=== PATIENT | male | born 1960 | race African-American/Black ===

== ENCOUNTER 2018-09-10 23:44 | Inpatient (IN) | payer OTHER ==
[~2018-09-10] VITALS: Ht 180.3 cm; Wt 90.3 kg
[2018-09-11] MEDS ORDERED: IV NORMAL SALINE 1,000ML 1,000 ML IV ONE (00:30)
[2018-09-11] MEDS ORDERED: ASPIRIN 325 MG TABLET PO ONE (00:45)
--- NOTE | 2018-09-11 00:45 | RAD ---
PQRS Compliance Statement: One or more of the following individualized dose reduction techniques were utilized for this examination: 1. Automated exposure control 2. Adjustment of the mA and/or kV according to patient size 3. Use of iterative reconstruction technique CT HEAD WITHOUT CONTRAST History: Left-sided facial droop, weakness. Comparison: None. Procedure: Axial images are obtained of the head from the skull base through the vertex without IV contrast. Findings: The ventricles and sulci are normal for the patient's age. No mass-effect, midline shift, hemorrhage, extra-axial fluid collection, or obvious acute infarction is identified. Basilar cisterns are patent. Bone windows demonstrate no acute calvarial abnormality. Tiny malleable plate and screw fixation superior to left orbit. The visualized paranasal sinuses are clear. Mastoid air cells are well aerated. IMPRESSION: No acute intracranial abnormality. Electronically signed by: Vincenzo Goznalez MD (09/11/2018 12:42 AM) [facility]
--- NOTE | 2018-09-11 00:48 | PHYS DOC ---
Past History Past Medical History: High Cholesterol, Hypertension Additional Past Medical Histor: TBI with subdural hemorrhage Additional Past Surgical Histo: Facial reconstruction, Keven holes, hernia repair Smoking: Quit Less Than 1 Year Alcohol Use: None Drug Use: None Adult General Chief Complaint Chief Complaint: WEAKNESS/GENERALIZED HPI HPI 57-year-old male presents with report of sudden left-sided facial droop and left-sided weakness which started at around 2300. Family reports last approximate 10 minutes and self resolved. Patient also noted to have slurred speech at that time. Patient has a history of prior TBI with intercranial hemorrhage requiring surgical intervention in 2010. Denies use of blood thinners. Denies recent trauma. Denies fever or chills. Reports has some slight speech issues status post TBI. Review of Systems Review of Systems Constitutional: Denies fever or chills Eyes: Denies redness or eye pain HENT: Denies nasal congestion or sore throat Respiratory: Denies cough or shortness of breath Cardiovascular: Denies chest pain or palpitations GI: Denies abdominal pain, nausea, or vomiting : Denies dysuria or hematuria Musculoskeletal: Denies back pain or joint pain Integument: Denies rash or skin lesions Neurologic: Denies headache; reports left sided weakness and slurred speech Complete systems were reviewed and found to be within normal limits, except as documented in this note. Current Medications Current Medications Current Medications Medications (Trade) Dose Ordered Sig/Shelbi Start Time Stop Time Status Last Admin Dose Admin Aspirin (Ashley Aspirin) 325 mg 1X ONCE 09/11/18 00:45 09/11/18 00:46 UNV Sodium Chloride 1,000 ml @ 1,000 mls/hr 1X ONCE 09/11/18 00:00 09/11/18 00:59 UNV Physical Exam Physical Exam Constitutional: Well developed, well nourished, no acute distress, non-toxic appearance HENT: Normocephalic, atraumatic, oropharynx moist Eyes: PERRL, EOMI, conjunctiva normal, no discharge Neck: Normal range of motion, no tenderness, supple Cardiovascular: Heart rate normal, regular rhythm Lungs & Thorax: Bilateral breath sounds clear to auscultation, no wheezing Abdomen: Soft, no tenderness Skin: Warm, dry, no erythema, no rash Back: No tenderness, no CVA tenderness Extremities: No tenderness, ROM intact, no edema Neurologic: Alert and oriented X 3, normal motor function, normal sensory function, no focal deficits noted Psychologic: Affect normal, judgement normal, mood normal Current Patient Data Vital Signs Vital Signs Date Time Temp Pulse Resp B/P (MAP) Pulse Ox O2 Delivery O2 Flow Rate FiO2 09/10/18 23:50 60 16 98 Room Air EKG EKG @0036 Sinus bradycardia at 51 bpm, nonspecific t wave inversion III, baseline artifact V2 Radiology/Procedures Radiology/Procedures PROCEDURE: CT HEAD WO CONTRAST PQRS Compliance Statement: One or more of the following individualized dose reduction techniques were utilized for this examination: 1. Automated exposure control 2. Adjustment of the mA and/or kV according to patient size 3. Use of iterative reconstruction technique CT HEAD WITHOUT CONTRAST History: Left-sided facial droop, weakness. Comparison: None. Procedure: Axial images are obtained of the head from the skull base through the vertex without IV contrast. Findings: The ventricles and sulci are normal for the patient's age. No mass-effect, midline shift, hemorrhage, extra-axial fluid collection, or obvious acute infarction is identified. Basilar cisterns are patent. Bone windows demonstrate no acute calvarial abnormality. Tiny malleable plate and screw fixation superior to left orbit. The visualized paranasal sinuses are clear. Mastoid air cells are well aerated. IMPRESSION: No acute intracranial abnormality. Electronically signed by: Vincenzo Gonzalez MD (09/11/2018 12:42 AM) [facility] CXR AP (preliminary interpretation by ED physician): NO acute process Course & Med Decision Making Course & Med Decision Making Pertinent Labs and Imaging studies reviewed. (See chart for details) Patient presents with history of present illness and physical exam concerning for TIA. Patient does have history of prior traumatic brain injury with intracranial hemorrhaging requiring surgical intervention. Denies use of blood thinners. Denies recent trauma. NIHSS 0. CT head without acute process. Chest x- ray clear. EKG stable. Labs obtained and posted to chart. Patient not candidate for TPA given history of intracranial hemorrhage and resolution of symptoms. ASA given, Patient requiring admission for further evaluation and treatment. Discussed with Dr. Oates (hospitalist) who is in agreement with admission. Discussed findings and plan with patient and family, who acknowledge understanding and agreement. Dragon Disclaimer Dragon Disclaimer This electronic medical record was generated, in whole or in part, using a voice recognition dictation system. Departure Departure: Impression: Primary Impression: TIA (transient ischemic attack) Disposition: ADMITTED INPATIENT Admitting Physician: Concepcion Oates Condition: STABLE NIHSS - ED NIH Stroke Scale: NIH Stroke Scale Response (Comments) Value Level of Consciousness: 0 Alert/Responsive 0 LOC Questions: 0 Answers both correctly 0 LOC Commands: 0 Performs both tasks 0 Best Gaze: 0 Normal 0 Visual: 0 No visual loss 0 Facial Palsy: 0 Normal, symmetrical 0 Motor - Left Arm 0 No drift 0 Motor - Right Arm 0 No drift 0 Motor - Left Leg 0 No drift 0 Motor: Right Leg 0 No drift 0 Limb Ataxia: 0 Absent 0 Sensory: 0 No loss 0 Best Language: 0 Normal 0 Dysathria: 0 Normal 0 Extinction and Inattention: 0 Normal 0 Total 0 AHMADI,JILLIAN Ahn DO Sep 11, 2018 00:48
[2018-09-11] MEDS ORDERED: ONDANSETRON PF 4 MG/2 ML VIAL. IV PRN (01:00)
[2018-09-11 01:18] LABS: BASO % 1 % (0-3); EOS # 0.1 x10^3/uL (0.0-0.7); EOS % 1 % (0-3); HEMATOCRIT 39.6 % (39.0-53.0); HEMOGLOBIN 13.2 g/dL (13.0-17.5); LYMPH # 3.1 x10^3/uL (1.0-4.8); LYMPH % 43 % (24-48); MEAN CORPUSCULAR HEMOGLOBIN 31 pg (25-35); MEAN CORPUSCULAR HGB CONC 33 g/dL (31-37); MEAN CORPUSCULAR VOLUME 92 fL (79-100); MONO # 0.6 x10^3/uL (0.0-1.1); MONO % 9 % (0-9); NEUT # 3.4 x10^3uL (1.8-7.7); NEUT % 46 % (31-73); PLATELET COUNT 218 x10^3/uL (140-400); RED BLOOD COUNT 4.31 x10^6/uL (4.30-5.70); RED CELL DISTRIBUTION WIDTH 12.8 % (11.5-14.5); WHITE BLOOD COUNT 7.2 x10^3/uL (4.0-11.0)
[2018-09-11 01:36] LABS: BACTERIA,URINE 0 /HPF (0-FEW); BILIRUBIN,URINE NEG (NEG); CLARITY,URINE CLEAR; COLOR,URINE YELLOW; GLUCOSE,URINE NEG (NEG); NITRITE,URINE NEG (NEG); RBC,URINE OCC /HPF (0-2); SQUAMOUS EPITHELIAL CELL,UR OCC /LPF; UROBILINOGEN,URINE 2 mg/dL (0.2 mg/dL); WBC,URINE OCC /HPF (0-4)
[2018-09-11 01:43] LABS: ALBUMIN/GLOBULIN RATIO 1.1 (1.0-1.7); CALCIUM 9.7 mg/dL (8.5-10.1); CREATININE 1.4 mg/dL (0.7-1.3); GFR 63.2; POTASSIUM 3.8 mmol/L (3.5-5.1); TOTAL PROTEIN 7.7 g/dL (6.4-8.2)
[2018-09-11 03:00] VITALS: BP 147/93
[2018-09-11] MEDS ORDERED: ATOR10TA60 PO (03:43)
[2018-09-11] MEDS ORDERED: DISU500T2 PO (03:43)
[2018-09-11] MEDS ORDERED: AMLO10TA8 PO (03:43)
[2018-09-11] MEDS ORDERED: HYDR-2145 PO (03:43)
[2018-09-11] MEDS ORDERED: MULT1TAB52 PO (03:43)
[2018-09-11] MEDS ORDERED: NICO1PAT25 TD (03:43)
[2018-09-11] MEDS ORDERED: ATOR40TA PO (04:16)
[2018-09-11] MEDS ORDERED: TRIA1TAB3 PO (04:16)
[2018-09-11 06:25] VITALS: BP 115/77
--- NOTE | 2018-09-11 07:50 | RAD ---
EXAM: AP View of the chest DATE: 09/10/2018 11:55 PM INDICATION: Left-sided facial droop generalized weakness COMPARISON: No Prior FINDINGS: The heart is not enlarged. Mediastinal and hilar contours are normal. No focal parenchymal airspace opacity. No pleural effusion or pneumothorax. IMPRESSION: 1. No radiographic evidence for acute cardiopulmonary process. Electronically signed by: Roscoe Villatoro MD (09/11/2018 7:47 AM) [facility]
[2018-09-11] MEDS ORDERED: NICOTINE 14MG PATCH. TD SCH (09:00)
[2018-09-11] MEDS ORDERED: MULTIVITAMIN with MINERAL TABLET. PO SCH (09:00)
[2018-09-11] MEDS ORDERED: ATORVASTATIN CALCIUM 20 MG TABLET PO SCH (09:00)
[2018-09-11] MEDS ORDERED: amLODIPine BESYLATE 10 MG TABLET PO SCH (09:00)
[2018-09-11] MEDS ORDERED: TRIAMTERENE/HCTZ 37.5/25MG TABLET. PO SCH (09:00)
[2018-09-11 10:08] VITALS: BP 119/71
--- NOTE | 2018-09-11 11:54 | EKG ---
[address] [address] Test Date: 2018-09-11 Test Time: 00:36:53 Pat Name: EDUARDO ASIF Department: Room: Gender: M Tripe Washer: SORAYA : 1960 Requested By: JILLIAN AHMADI Order Number: [id number] Reading MD: Measurements Intervals [place] Rate: 51 P: MS: QRS: -14 QRSD: 90 T: 2 QT: 420 QTc: 389 Interpretive Statements ATRIAL FLUTTER LEFTWARD AXIS QRS(T) CONTOUR ABNORMALITY CONSIDER ANTEROSEPTAL MYOCARDIAL DAMAGE ABNORMAL ECG RI6.01 No previous ECG available for comparison
[2018-09-11 15:30] VITALS: BP 114/72
--- NOTE | 2018-09-11 15:58 | RAD ---
DOPPLER CAROTID BILAT History: TIA Multiple grayscale, color, and duplex spectral analysis waveform sonographic images were acquired of the carotid, subclavian, and vertebral arteries. Comparison: None Findings: Right side: Peak systolic flow velocity of the distal CCA is 80 cm/sec. Peak systolic flow velocity of the ICA is 70 cm/sec. The ICA/CCA ratio is less than 1. Peak end diastolic flow velocity of the ICA is 28 cm/sec. The peak systolic velocity of the ECA is 85 cm/sec. Minimal plaque formation is identified. Left side: Peak systolic flow velocity of the distal CCA is 84 cm/sec. Peak systolic flow velocity of the ICA is 57 cm/sec. The ICA/CCA ratio is less than 1. Peak end diastolic flow velocity of the ICA is 24 cm/sec. Peak systolic flow velocity of the ECA is 50 cm/sec. Minimal plaque formation is identified. Vertebral arteries: Bilateral vertebral arteries demonstrate antegrade flow. Impression: Minimal internal carotid artery atherosclerosis, with velocities consistent with less than 50 percent stenosis. PQRS Compliance Statement - Stenosis calculations for carotid ultrasound studies are derived from validated velocity criteria which are known to correlate with the NASCET methodology. Electronically signed by: Francesco Lyle MD (09/11/2018 3:55 PM) [facility]
[2018-09-11] MEDS ORDERED: ASPI-612 PO (16:59)
--- NOTE | 2018-09-11 18:07 | SSS ---
ADMIT DATE: HISTORY OF PRESENT ILLNESS: The patient is a 57-year-old -Bangl[place] male patient who came to the Emergency Room with a complaint of weakness involving with a sudden left-sided facial droop and left-sided weakness that started around 11 p.m. in the evening. The family reported that the episode lasted about 10 minutes and self resolved. The patient also noted to have slurred speech at that time. He had a history of prior traumatic brain injury with intracranial hemorrhage requiring surgical intervention in 2010. However, he denied any use of any blood thinners. Denied any recent trauma. Denied any fevers, chills or rigors. He stated that his speech is slurred, since he has had his total traumatic brain injury. So by the time he arrived to the Emergency Room, apparently all his symptoms have resolved completely. He was extensively investigated in the Emergency Room and his CT scan showed that he has no acute intracranial abnormality. The patient was admitted with diagnosis of transient ischemic attack. We did consult Dr. Sewell and apparently, the patient has had a carotid Doppler ultrasound as well as his fasting lipid profile and as his symptoms completely resolved, his carotid Doppler ultrasound was unremarkable and showed minimal plaque formation with minimal internal carotid artery atherosclerosis with velocities consistent with less than 50% stenosis. As the patient remained stable hemodynamically, has had no further deficit, a decision was made to discharge him home to continue on baby aspirin. PAST MEDICAL HISTORY: Significant for hypertension, hyperlipidemia and generalized osteoarthritis. PAST SURGICAL HISTORY: Significant for traumatic brain injury, left forearm laceration and left inguinal hernia repair. ALLERGIES: He has no known drug allergies. MEDICATIONS: He is currently on following medications: Nicoderm CQ 14 mg patch topically daily, atorvastatin calcium 40 mg daily, amlodipine besylate 10 mg daily, triamterene/hydrochlorothiazide 37.5/25 one tablet daily, multivitamin 1 tablet once a day, disulfiram for Antabuse 500 mg daily. FAMILY HISTORY: He has 3 sisters and 2 brothers. His 2 older sisters have hypertension. All others are healthy. His father at age of 57 and mother at the age of 71, the cause of is not clear. SOCIAL HISTORY: He is , has 1 daughter. Quit smoking 2 weeks ago. He is using Nicoderm patch. He quit alcohol on 02/2018. He is now on disulfiram. He used to drink a fifth of vodka. 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 REVIEW OF SYSTEMS: As per history of present illness. PHYSICAL EXAMINATION GENERAL: When I examined him this afternoon, he was sitting on the edge of the bed comfortably in no apparent distress. No pallor, jaundice, cyanosis or thyromegaly. No jugular venous distension. No limb edema. VITAL SIGNS: His heart rate was 66, blood pressure was 114/72, temperature was 97.8, respiratory rate was 20, and oxygen saturation was 96%. HEAD, EYES, EARS, NOSE AND THROAT: Showed he is normocephalic, status post traumatic brain injury before with scars in the forehead. NECK: Supple. HEART: Showed normal first and second heart sounds with no gallop, rub or murmur. CHEST: Clear to auscultation. No crepitation or rhonchi. ABDOMEN: Distended, soft, nontender. NEUROLOGIC: He was awake, alert, responding appropriately. All his cranial nerves are intact. He moves extremities without difficulty. He ambulates without assistance or assistive devices. There was no evidence of any cerebellar dysfunction and Romberg's test was negative. LABORATORY DATA: Showed a white cell count of 7200; hemoglobin 13; hematocrit 39, MCV 92; and platelet count 218,000. His chemistry showed a serum sodium 143, potassium 3.8, chloride 106, bicarbonate 32, anion gap of 5, BUN 19, creatinine 1.4, estimated GFR was 63 mL per minute. His glucose was 93. Calcium was 9.7, magnesium 2. Total bilirubin, AST, ALT, alkaline phosphatase were normal. His total protein was 7.7, albumin was 4. His prothrombin time was 9.9, INR of 1, aPTT was 24. Urinalysis was unremarkable. His CT scan of the head showed that the ventricles and sulci are normal for the patient's age. No mass effect, midline shift, hemorrhage, extraaxial fluid collection or obvious acute infarction identified. Basilar cisterns are patent. Bone windows demonstrated no acute calvarial abnormality. Tiny malleable plate and screw fixation superior to the left orbit. The visualized paranasal sinuses are clear. Mastoid air cells are well aerated. His chest x-ray was unremarkable. The heart is not enlarged. Mediastinal hilar contours are normal. No focal parenchymal airspace opacity. No pleural effusion or pneumothorax. A carotid Doppler ultrasound showed that the patient has minimal plaque formation identified. Vertebral arteries demonstrated antegrade flow and the patient has minimal internal carotid artery atherosclerosis with velocities consistent with less than 50% stenosis. The patient was discharged home to continue on baby aspirin 81 mg once a day. He is also continue on amlodipine 10 mg once a day, atorvastatin 40 mg at bedtime, disulfiram for Antabuse 500 mg daily, multivitamin 1 tablet once a day, Nicoderm CQ 14 mg topically daily and triamterene/hydrochlorothiazide 37.5/25 one tablet once a day. FINAL DISCHARGE DIAGNOSES: 1. Transient ischemic attack. 2. Hypertension. 3. Hyperlipidemia. 4. Nicotine addiction or dependence. 5. Alcoholism, for which he is on disulfiram. CHANDRAKANT PABLO MD DR: ASIF/basil JOB#: [id number] / [id number]
--- NOTE | 2018-09-11 22:29 | CONS ---
DATE OF CONSULTATION: 09/11/2018 REFERRING PHYSICIAN: Dr. Oates. REASON FOR CONSULTATION: Rule out TIA versus stroke. HISTORY OF PRESENT ILLNESS: This is a 57-year-old right-handed -[place] male who was admitted through Emergency Room after he presented with acute onset of slurred speech, left facial drooping and left-sided weakness. The patient stated he was talking to his sister on phone and all of a sudden, his speech becomes very slurred. He felt left facial droop and weakness of the left upper and lower extremities. The symptoms lasted approximately 10-15 minutes. He denies headaches, visual disturbances, nausea, vomiting, chest pain, shortness of breath or palpitation, dysarthria, dysphagia or vertigo. On arrival to Emergency Room, his blood pressure was 140/90. He was alert and oriented. He did not have any neurological deficits. Initial nonenhanced head CT scan revealed no evidence of acute intracranial process. The patient was given aspirin 325 mg and continue on his blood pressure medications. The patient denies any history of stroke or TIA. PAST MEDICAL HISTORY: Significant for hyperlipidemia, hypertension, hernia repair, history of intracranial hemorrhage in 2010 due to TBI. History of DVT of the left lower extremity in 2017 required Coumadin use for 6 months. SOCIAL HISTORY: The patient smoked 3 cigarettes yesterday. He actually he quit smoking 2 weeks ago. He denies alcohol drinking or illicit drug use. 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 FAMILY HISTORY: Grandmother had myocardial infarction. Mother had diabetes mellitus and his son has strong family history of hypertension. CURRENT HOME MEDICATIONS: Amlodipine 10 mg daily, Lipitor 40 mg p.o. daily, multivitamins, Nicoderm 14 mg patches, triamterene/hydrochlorothiazide 37.5/25 one tablet daily. ALLERGIES: No known drug allergies. REVIEW OF SYSTEMS: A 10-point review of systems was performed as mentioned above in history of present illness. PHYSICAL EXAMINATION: GENERAL: Well-developed, well-nourished male, -[place]ian male, not in acute distress. He weighs 90 kilos. VITAL SIGNS: Blood pressure 131/73, respiratory rate 16, pulse is 52, oxygen saturation 100% on room air. HEENT: Normocephalic, atraumatic, otherwise unremarkable. NECK: Supple. Negative for carotid bruit, lymphadenopathy or thyromegaly. LUNGS: Clear to A and P. CARDIOVASCULAR: Regular rate and rhythm, normal S1, S2. There is no S3, S4 or murmurs. ABDOMEN: Soft. Bowel sounds positive. EXTREMITIES: Negative for cyanosis, clubbing or edema. NEUROLOGIC: Mental status: The patient is alert and oriented x 3. Speech is fluent. There is no language dysfunction. Memory, judgment, and abstract thinking are normal. The patient denies hallucination or delusion. CRANIAL NERVES: Visual saunders are full. The pupils are reactive to light and accommodation. The extraocular movements are intact. There is no nystagmus. There is no facial motor or sensory deficit. Hearing is intact bilaterally. The palate is elevated symmetrically. Sternocleidomastoid muscles are powerful bilaterally. The patient shrugs his shoulders symmetrically, protrudes his tongue in the midline without fasciculation or atrophy. MOTOR: No focal muscle bulk was seen. The tone is normal. The strength is 5/5 throughout. SENSORY EXAMINATION: Normal pinprick, light touch, vibratory and position senses. Deep tendon reflexes were symmetric and hypoactive without pathology responses. Gait and coordination are normal. LABORATORY DATA: CBC revealed white blood cells of 7.2 thousand, hemoglobin 13.2, hematocrit 39.6 and platelet count 218. Chemistry revealed sodium is 143, potassium 3.8, chloride 106, CO2 of 32, BUN 19, creatinine 1.4, glucose 93, calcium is 9.7. Troponin level is normal. Cardiac enzymes are normal. Urinalysis is negative for urinary tract infections. PT is 9.9 and PTT are 24. IMPRESSION: 1. Possible transient ischemic attack, presented with brief and acute onset of slurred speech, dense left-sided weakness along with slurred speech. 2. Multiple medical problems include hypertension, hyperlipidemia and history of deep venous thrombosis, left lower extremity. 3. Bradycardia. RECOMMENDATIONS: 1. Continue with aspirin and current home medications. 2. Carotid Doppler study. 3. The patient may need followup with cardiologists for persistent bradycardia. M Jesus CAT MD DR: VIRGIL/basil JOB#: [id number] / [id number]
[2018-09-12] MEDS ORDERED: ASPIRIN 81 MG TAB.CHEW PO SCH (08:00)
== END 2018-09-11 17:34 | disposition home or self-care (01) | DRG 69 ==
LOC: ER 23:44 → 1 SOUTH 09-11 00:50
PROVIDERS: ADMIT Internal Medicine; ATTEND Internal Medicine
DX: G45.9 Transient cerebral ischemic attack, unspecified (principal); E78.00 Pure hypercholesterolemia, unspecified; E78.5 Hyperlipidemia, unspecified; F10.20 Alcohol dependence, uncomplicated; F17.200 Nicotine dependence, unspecified, uncomplicated; I10 Essential (primary) hypertension; M15.9 Polyosteoarthritis, unspecified; Z82.49 Family history of ischemic heart disease and other diseases of the circulatory system; Z86.718 Personal history of other venous thrombosis and embolism; Z86.73 Personal history of transient ischemic attack (TIA), and cerebral infarction without residual deficits; Z83.3 Family history of diabetes mellitus; Z79.899 Other long term (current) drug therapy
CPT/HCPCS: 36415; 70450; 71045; 80053; 80061; 81001; 82140; 82553; 83605; 83735; 84484; 85025; 85610; 85730; 93005; 93880; 96361; 96374; J2405; 99285-25; J7030